=== PATIENT | male | born 1965 | race Caucasian/White ===

== ENCOUNTER 2018-01-09 09:18 | Emergency (ER) | payer OTHER, SELFPAY ==
[~2018-01-09] VITALS: Ht 177.8 cm; Wt 101.8 kg
[2018-01-09 09:25] VITALS: BP 143/86
== END 2018-01-09 12:22 | disposition home or self-care (01) ==
LOC: ED 10:30
DX: J01.00 Acute maxillary sinusitis, unspecified (principal); J45.909 Unspecified asthma, uncomplicated
CPT/HCPCS: 71046; 99284